=== PATIENT | female | born 1970 | race Caucasian/White ===

== ENCOUNTER 2016-03-19 09:46 | Emergency (ER) | payer MEDICAID ==
[~2016-03-19] VITALS: Ht 177.8 cm; Wt 63.5 kg
[~2016-03-19 09:46] MED LIST: AZIT250T6 PO
[2016-03-19 09:55] VITALS: BP 135/59; PULSE 90; RESP 20; TEMP 98.4; O2SAT 100
--- NOTE | 2016-03-19 10:03 | NUR ---
Pt placed to ER bed 03. Pt report given to KEEGAN Atkins.
--- NOTE | 2016-03-19 10:15 | NUR ---
PATIENT AWAKE IN BED, STABLE CONDITION, ALERT AND ORIENTED X4. HAS HAD LOWER ABDOMINAL PAIN, LOWER BACK PAIN, URINARY FREQUENCY, PAIN WITH URINATION AND HEMATURIA SINCE LAST NIGHT. WAS TREATED FOR UTI ON THE Feb AND FEEL LIKE IT HAS COME BACK. NO OTHER COMPLAINTS/INJURIES PER PATIENT OR NOTED.
--- NOTE | 2016-03-19 10:18 | NUR ---
DR ANN AT BEDSIDE.
[2016-03-19] MEDS ORDERED: MORPHINE 4 MG/ML INJ. SYRINGE IVP ONE (10:30)
[2016-03-19] MEDS ORDERED: DIPHENHYDRAMINE INJ 50 MG/ML VIAL IVP ONE (10:30)
[2016-03-19] MEDS ORDERED: NACL 0.9% 1,000 ML IV ONE (10:30)
[2016-03-19 10:31] LABS: BILIRUBIN,URINE NEGATIVE (NEGATIVE); BLOOD, URINE 3+ (NEGATIVE); CLARITY/URINE HAZY (CLEAR); COLOR,URINE YELLOW (YELLOW); GLUCOSE,URINE NEGATIVE (NEGATIVE); KETONES,URINE NEGATIVE (NEGATIVE); LEUKOCYTE ESTERASE ,URINE 2+ (NEGATIVE); NITRITE, URINE POSITIVE (NEGATIVE); PH,URINE 6.5 (5.0-8.0); PROTEIN URINE 2+ (NEGATIVE); UROBILINOGEN,URINE 0.2 (0.2-1.0)
[2016-03-19 10:38] LABS: BACTERIA,URINE FEW /HPF (None Seen); MUCUS,URINE None Seen /LPF (None Seen); WBC,URINE 20-50 /HPF (0-3)
[2016-03-19 10:42] LABS: BASOPHILS % (AUTO) 0.5 % (0.0-2.0); EOSINOPHILS # (AUTO) 0.2 K/uL (0.0-0.4); EOSINOPHILS % (AUTO) 2.1 % (0.0-4.0); HEMOGLOBIN 11.2 g/dL (12.0-16.0); LYMPHOCYTES # (AUTO) 1.7 K/uL (1.0-5.5); LYMPHOCYTES % (AUTO) 19.7 % (20.5-51.5); MEAN CORPUSCULAR HEMOGLOBIN 26 pg (27-31); MEAN CORPUSCULAR HGB CONC 32 % (32-36); MEAN CORPUSCULAR VOLUME 80 fL (79.0-98.0); MONOCYTES # (AUTO) 0.7 K/uL (0.0-1.0); NEUTROPHILS # (AUTO) 5.9 K/uL (1.8-7.7); NEUTROPHILS % (AUTO) 69.7 % (40.0-70.0); PLATELET COUNT (AUTO) 246 K/uL (130-430); RED BLOOD CELL COUNT(AUTO) 4.35 MIL/uL (4.2-6.2); RED CELL DISTRIBUTION WIDTH 16.4 % (9.0-15.0); WHITE BLOOD COUNT (AUTO) 8.5 K/uL (4.8-10.8)
--- NOTE | 2016-03-19 10:45 | NUR ---
# 20 gauge angiocath placed to L AC. Use of asceptic technique. Opsite placed over site. Blood return noted. Flushed with 10 cc of normal saline. No evidence of infiltration noted. Patient tolerated well.
--- NOTE | 2016-03-19 10:56 | NUR ---
medicated pt per MD order, allergies acknowledged
[2016-03-19 10:57] LABS: CALCIUM 8.9 mg/dL (8.4-11.0); CREATININE 0.84 mg/dL (0.55-1.30); POTASSIUM 4.1 mmol/L (3.5-5.1)
[2016-03-19 11:02] LABS: ALBUMIN 3.4 g/dL (3.4-4.8); TOTAL BILIRUBIN 0.2 mg/dL (0.0-1.0); TOTAL PROTEIN, SERUM 7.5 g/dL (6.4-8.3)
[2016-03-19] MEDS ORDERED: MAGNESIUM CITRATE 300 ML ORAL SOLUTION PO ONE (12:00)
--- NOTE | 2016-03-19 12:00 | NUR ---
Patient given written and verbal discharge instructions and verbalizes understanding. ER MD discussed with patient the results and treatment provided. Patient in stable condition. ID arm band removed. IV catheter removed intact and dressing applied, no active bleeding. Rx of pyridium and Bactrum given. Patient educated on pain management and to follow up with PMD. Pain Scale 0/10. Opportunity for questions provided and answered.
[2016-03-19 12:29] VITALS: BP 141/85; PULSE 73; RESP 20; TEMP 98.2; O2SAT 100
== END 2016-03-19 12:29 | disposition home or self-care (01) ==
LOC: SED 09:46
DX: N39.0 Urinary tract infection, site not specified (principal); K59.00 Constipation, unspecified; Z88.1 Allergy status to other antibiotic agents
CPT/HCPCS: 36415; 74176; 80053; 81000; 81025; 83605; 83690; 85025; 85610; 87040; 87086; 93005; 96361; 96374; 96375; 99285; J1200; J2270; J7030; 87186-TC

== ENCOUNTER 2016-04-10 03:52 | Emergency (ER) | payer MEDICAID ==
[~2016-04-10] VITALS: Ht 177.8 cm; Wt 65.8 kg
[2016-04-10 04:00] VITALS: BP 138/89; PULSE 71; RESP 18; TEMP 97.6; O2SAT 100
--- NOTE | 2016-04-10 04:00 | NUR ---
PT IS AOX4, C/O CONSTIPATION X 5 DAYS. PAIN SCALE 8/10.
--- NOTE | 2016-04-10 04:00 | NUR ---
Placed in room 08 . Placed on superintendent stevedoring, blood pressure machine and pulse oximeter. To gown for exam. Side rails up. Report given to KEEGAN Salomon.
--- NOTE | 2016-04-10 04:15 | NUR ---
ER Dr.DE REHMAN at bedside examining patient.
--- NOTE | 2016-04-10 04:35 | NUR ---
MD Dr. Bolivar at bedside performing rectal exam, female nurse present , no acute distress noted, patient tolerated exam well. Will continue to monitor.
[2016-04-10] MEDS ORDERED: NA PHOS,M-B/NA PHOS,DI-BA 118 ML (FLEET ENEMA) RC ONE (05:00)
[2016-04-10] MEDS ORDERED: MILK OF MAGNESIA 30 ML UDC PO ONE (05:00)
[2016-04-10] MEDS ORDERED: KETOROLAC TROMETHAMINE 60 MG/2 ML VIAL IM ONE (05:30)
[2016-04-10 05:35] VITALS: BP 138/89; PULSE 71; RESP 18; TEMP 97.6; O2SAT 100
--- NOTE | 2016-04-10 05:35 | NUR ---
Patient given written and verbal discharge instructions and verbalizes understanding. ER MD discussed with patient the results and treatment provided. Patient in stable condition. ID arm band removed. Rx of FLEET DISPOSABLE RECTAL ENEMA, COLACE 100 MG , MILK OF MAGNEASIA SUSPENSION AND GO LYTELY BOTTLE given. Patient educated on pain management and to follow up with PMD. Pain Scale 0/10. Opportunity for questions provided and answered.
== END 2016-04-10 05:35 | disposition home or self-care (01) ==
LOC: SED 03:52
DX: K59.00 Constipation, unspecified (principal); F17.210 Nicotine dependence, cigarettes, uncomplicated; Z88.1 Allergy status to other antibiotic agents
CPT/HCPCS: 81025; 96372; 99284; J1885

== ENCOUNTER 2016-05-12 00:43 | Emergency (ER) | payer MEDICAID ==
[~2016-05-12] VITALS: Ht 177.8 cm; Wt 63.5 kg
[2016-05-12 01:06] VITALS: BP 139/89; PULSE 74; RESP 17; TEMP 97.8; O2SAT 100
--- NOTE | 2016-05-12 01:06 | NUR ---
Patient to ER bed 6 to gown for evaluation. Side rails up. Report given to Lenny ALLISON.
--- NOTE | 2016-05-12 01:10 | NUR ---
Pt presents to ED with c/o blood in stool x2 days. Skin intact, no complain of dizziness, gait stable. A&Ox4, denies SOB or chestpain, denies N/V/D. Will continue to monitor
--- NOTE | 2016-05-12 01:23 | NUR ---
ER MD Pierceaw at bedside for evaluation
[2016-05-12 01:30] VITALS: BP 132/87; PULSE 72; RESP 18; TEMP 97.8; O2SAT 99
--- NOTE | 2016-05-12 01:30 | NUR ---
Patient given written and verbal discharge instructions and verbalizes understanding. ER MD discussed with patient the results and treatment provided. Patient in stable condition. ID arm band removed. Rx of colace given. Patient educated on pain management and to follow up with PMD. Pain Scale 0/10 Opportunity for questions provided and answered.
== END 2016-05-12 01:30 | disposition home or self-care (01) ==
LOC: SED 00:43
DX: K60.2 Anal fissure, unspecified (principal); Z88.1 Allergy status to other antibiotic agents
CPT/HCPCS: 99282

== ENCOUNTER 2018-05-30 21:18 | Emergency (ER) | payer MEDICAID ==
[~2018-05-30] VITALS: Ht 177.8 cm; Wt 65.8 kg
[2018-05-30 21:22] VITALS: BP_SYST 115
--- NOTE | 2018-05-30 21:33 | NUR ---
Patient to ER bed 08 for evaluation. Side rails up. Report given to Anna ALLISON.
--- NOTE | 2018-05-30 21:36 | NUR ---
Pt complains of bug bites to left hip that happened last night. Pt states she has been feeling very itchy. Pt was at the store today and stated " I felt a wave of chills and sick to my stomach so I had to leave." Pt denies any pain and states "it's more itchy than pain." No other injuries/complaints per patient or noted.
--- NOTE | 2018-05-30 21:43 | NUR ---
ER Dr. Rojas at bedside examining patient.
[2018-05-30] MEDS ORDERED: SULFAMETHOXAZOLE/TRIMETHOPR DS 1 TABLET PO ONE (22:00)
[2018-05-30] MEDS ORDERED: DIPHENHYDRAMINE INJ 50 MG/ML VIAL IM ONE (22:30)
--- NOTE | 2018-05-30 23:00 | NUR ---
Pt left room and told admitting that she will be going to the car to get her purse since her son is coming to pick her up. SPoke with patient and was told the same thing. Pt states "I'll come back I just want to get my stuff ready before he comes."
--- NOTE | 2018-05-30 23:01 | NUR ---
Pt was advised to stay in room to wait for son to pick her up, for safety reasons. Pt refused and left ER.
--- NOTE | 2018-05-30 23:27 | NUR ---
Pt did not come back for discharge paperwork. Checked restrooms, checked room, checked parking lot, no sign of patient. Notified Dr. Rojas that patient eloped.
== END 2018-05-30 23:27 | disposition home or self-care (01) ==
LOC: SED 21:18
DX: S70.262A Insect bite (nonvenomous), left hip, initial encounter (principal); L03.114 Cellulitis of left upper limb; Z88.1 Allergy status to other antibiotic agents; W57.XXXA Bitten or stung by nonvenomous insect and other nonvenomous arthropods, initial encounter; Y93.89 Activity, other specified; Y92.89 Other specified places as the place of occurrence of the external cause; Y99.8 Other external cause status
CPT/HCPCS: 96372; 99283; J1200

== ENCOUNTER 2018-08-23 01:53 | Emergency (ER) | payer MEDICAID ==
[~2018-08-23] VITALS: Ht 177.8 cm; Wt 65.8 kg
[2018-08-23 02:00] VITALS: BP_SYST 130
--- NOTE | 2018-08-23 02:06 | NUR ---
Patient to ER bed 4 to gown for evaluation. Side rails up.
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
--- NOTE | 2018-08-23 02:37 | NUR ---
Dr. Saleh bedside for Pt eval
[2018-08-23] MEDS ORDERED: SILVER SULFADIAZINE 1%, 25 GM TOPICAL CREAM (SSD) TP ONE (02:45)
[2018-08-23] MEDS ORDERED: MORPHINE 2 MG/ML INJ. SYRINGE IM ONE (02:45)
[2018-08-23] MEDS ORDERED: methylPREDNISolone SOD SUCC/PF 62.5 MG/ML VIAL IM ONE (02:45)
[2018-08-23] MEDS ORDERED: BACITRACIN ZINC 15 GM TOPICAL OINTMENT TP ONE (03:00)
[2018-08-23] MEDS ORDERED: ACETAMINOPHEN 500 MG TABLET PO ONE (04:15)
[2018-08-23 04:45] VITALS: BP_SYST 132
--- NOTE | 2018-08-23 04:45 | NUR ---
Patient given written and verbal discharge instructions and verbalizes understanding. ER MD discussed with patient the results and treatment provided. Patient in stable condition. ID arm band removed. Rx of Prednisone, norco, silvdene 1%, Bactroban 2% given. Patient educated on pain management and to follow up with PMD. Pain Scale 0/10. Opportunity for questions provided and answered. Medication side effect fact sheet provided.
== END 2018-08-23 04:45 | disposition home or self-care (01) ==
LOC: SED 01:53
DX: T21.11XA Burn of first degree of chest wall, initial encounter (principal); Z88.1 Allergy status to other antibiotic agents; X12.XXXA Contact with other hot fluids, initial encounter; Y93.89 Activity, other specified; Y92.89 Other specified places as the place of occurrence of the external cause; Y99.8 Other external cause status
CPT/HCPCS: 16000; 96372; 99284; J2270; J2930

== ENCOUNTER 2018-10-17 21:12 | Emergency (ER) | payer MEDICAID ==
[~2018-10-17] VITALS: Ht 167.6 cm; Wt 64.9 kg
[2018-10-17 21:17] VITALS: BP_SYST 139
== END 2018-10-17 21:46 | disposition left against medical advice (07) ==
LOC: SED 21:12
DX: M79.604 Pain in right leg (principal); M79.605 Pain in left leg; M25.551 Pain in right hip; R50.9 Fever, unspecified; Z53.21 Procedure and treatment not carried out due to patient leaving prior to being seen by health care provider

== ENCOUNTER 2020-07-29 00:02 | Emergency (ER) | payer MEDICAID ==
[~2020-07-29] VITALS: Ht 177.8 cm; Wt 68.0 kg
[~2020-07-29 00:02] MED LIST changes: +ACET325T PO; -AZIT250T6 PO; +IBUP-1968 PO
[2020-07-29 00:18] VITALS: BP_SYST 129
--- NOTE | 2020-07-29 00:24 | NUR ---
Patient triaged and placed in waiting room. VSS and patient appears in no acute distress at this time. Accompanied by family, awaiting available bed, and MD notified of need for MSE.
--- NOTE | 2020-07-29 01:00 | NUR ---
Per revival clerk, pt LWBS.
== END 2020-07-29 01:00 | disposition left against medical advice (07) ==
LOC: SED 00:02
DX: M79.89 Other specified soft tissue disorders (principal); Z53.21 Procedure and treatment not carried out due to patient leaving prior to being seen by health care provider

== ENCOUNTER 2021-02-14 23:03 | Emergency (ER) | payer MEDICAID, SELFPAY ==
[~2021-02-14] VITALS: Ht 177.8 cm; Wt 65.8 kg
[2021-02-14 23:50] VITALS: BP_SYST 123
--- NOTE | 2021-02-15 02:13 | NUR ---
Called pattient, no answer. Patient left without being seen. ER MD aware
--- NOTE | 2021-02-15 02:13 | NUR ---
Per incoming freight clerk, pt LWBS.
== END 2021-02-15 02:13 | disposition left against medical advice (07) ==
LOC: SED 23:03
DX: R07.89 Other chest pain (principal); Z53.21 Procedure and treatment not carried out due to patient leaving prior to being seen by health care provider

== ENCOUNTER 2021-05-19 23:35 | Emergency (ER) | payer MEDICAID ==
[~2021-05-19] VITALS: Ht 177.8 cm; Wt 56.7 kg
[2021-05-19 23:40] VITALS: BP_SYST 123
--- NOTE | 2021-05-19 23:42 | NUR ---
Patient to ER bed 4 to gown for evaluation. Side rails up. Report given to MCKAY ALLISON(MAGY).
--- NOTE | 2021-05-19 23:47 | NUR ---
PT COMES TO ER WITH C/O DYSURIA X 3 DAYS, DENIES ANY N/V/D, NO FEVERS OR ABDOMINAL PAIN. STATES SHE IS PRONE TO FREQUENTS KIDNEY STONES AND PREVIOUS UTI,LAST 9 MONTHS AGO. URINE COLLECTED AND PROCESSED.
--- NOTE | 2021-05-19 23:54 | NUR ---
DR RUCKER IN ROOM FOR EXAM
[2021-05-20] MEDS ORDERED: NITROFURANTOIN MONOHYD/M-CRYST 100 MG CAPSULE (MacroBID) PO ONE
[2021-05-20] MEDS ORDERED: PHEN-726 PO (00:04)
[2021-05-20] MEDS ORDERED: NITR-85 PO (00:04)
[2021-05-20 00:06] LABS: BILIRUBIN,URINE NEGATIVE (NEGATIVE); CLARITY/URINE SL CLOUDY (CLEAR); COLOR,URINE YELLOW (YELLOW); GLUCOSE,URINE NEGATIVE (NEGATIVE); KETONES,URINE NEGATIVE (NEGATIVE); LEUKOCYTE ESTERASE ,URINE 1+ (NEGATIVE); NITRITE, URINE NEGATIVE (NEGATIVE); PROTEIN URINE NEGATIVE (NEGATIVE); UROBILINOGEN,URINE 0.2 (0.2-1.0)
[2021-05-20 00:08] LABS: BLOOD, URINE TRACE (NEGATIVE)
--- NOTE | 2021-05-20 00:09 | NUR ---
MEDICATED ORDERED, WILL MONIOT FOR ANY ADVERSE SIDE EEFECTS.
[2021-05-20 00:14] LABS: BACTERIA,URINE MODERATE /HPF (None Seen); WBC,URINE 50-80 /HPF (0-3)
[2021-05-20 00:15] LABS: MUCUS,URINE 2+ /LPF (None Seen)
[2021-05-20 00:26] VITALS: BP_SYST 123
== END 2021-05-20 00:26 | disposition home or self-care (01) ==
LOC: SED 23:35
DX: N39.0 Urinary tract infection, site not specified (principal); Z88.0 Allergy status to penicillin
CPT/HCPCS: 81000; 87086; 99283

== ENCOUNTER 2021-07-02 12:36 | Emergency (ER) | payer MEDICAID ==
[~2021-07-02] VITALS: Ht 177.8 cm; Wt 56.7 kg
[~2021-07-02 12:36] MED LIST changes: +NITR-85 PO; +PHEN-726 PO
--- NOTE | 2021-07-02 13:32 | NUR ---
Patient arrived to ED 4 from waiting room. Patient c/o lower back pain radiating to front since "last night." Patient denies taking any medication. Patient was previously at [facility] [place] for UTI and finished ATB regimen but patient thinks it "came back." Patient denies any other past medical issues. Will continue to monitor. Call light within reach.
[2021-07-02 13:36] VITALS: BP_SYST 115
--- NOTE | 2021-07-02 13:55 | NUR ---
Dr. Serrano MSE patient.
--- NOTE | 2021-07-02 14:10 | NUR ---
Urine specimen cup given for patient.
[2021-07-02 14:21] LABS: BASOPHILS % (AUTO) 0.5 % (0.0-2.0); EOSINOPHILS # (AUTO) 0.1 K/uL (0.0-0.4); EOSINOPHILS % (AUTO) 1.9 % (0.0-4.0); HEMATOCRIT 40.8 % (36-48); LYMPHOCYTES # (AUTO) 1.3 K/uL (1.0-5.5); LYMPHOCYTES % (AUTO) 24.6 % (20.5-51.5); MEAN CORPUSCULAR HEMOGLOBIN 31 pg (27-31); MEAN CORPUSCULAR HGB CONC 34 % (32-36); MEAN CORPUSCULAR VOLUME 90 fL (79.0-98.0); MONOCYTES # (AUTO) 0.4 K/uL (0.0-1.0); MONOCYTES % (AUTO) 7.4 % (1.7-9.3); NEUTROPHILS # (AUTO) 3.5 K/uL (1.8-7.7); NEUTROPHILS % (AUTO) 65.6 % (40.0-70.0); PLATELET COUNT (AUTO) 173 K/uL (130-430); RED BLOOD CELL COUNT(AUTO) 4.55 MIL/uL (4.2-6.2); RED CELL DISTRIBUTION WIDTH 13.3 % (9.0-15.0); WHITE BLOOD COUNT (AUTO) 5.3 K/uL (4.8-10.8)
--- NOTE | 2021-07-02 14:37 | NUR ---
Urine sent to lab.
[2021-07-02 14:40] LABS: ANION GAP 5 (5-15); CALCIUM 8.4 mg/dL (8.4-11.0); CHLORIDE 103 mmol/L (98-107); CREATININE 0.96 mg/dL (0.55-1.30); GLUCOSE 90 mg/dL (70-99); POTASSIUM 3.8 mmol/L (3.5-5.1); SODIUM SERUM 138 mmol/L (136-145); UREA NITROGEN, BLOOD 19 mg/dL (8-21)
[2021-07-02 14:42] LABS: GFR AFRICAN AMERICAN 79 mL/min (>90)
[2021-07-02 14:46] LABS: ALANINE AMINOTRANSFERASE 24 U/L (12-78); ALBUMIN 3.3 g/dL (3.4-4.8); AMYLASE 52 U/L (0-100); ASPARTATE AMINOTRANSFERASE 19 U/L (10-37); LIPASE 106 U/L (73-393); TOTAL BILIRUBIN 0.3 mg/dL (0.0-1.0)
[2021-07-02 14:47] LABS: C-REACTIVE PROTEIN QUANT < 0.2 mg/dL (0-0.5)
[2021-07-02 14:53] LABS: BILIRUBIN,URINE NEGATIVE (NEGATIVE); CLARITY/URINE CLEAR (CLEAR); COLOR,URINE YELLOW (YELLOW); GLUCOSE,URINE NEGATIVE (NEGATIVE); KETONES,URINE NEGATIVE (NEGATIVE); LEUKOCYTE ESTERASE ,URINE NEGATIVE (NEGATIVE); NITRITE, URINE NEGATIVE (NEGATIVE); PROTEIN URINE NEGATIVE (NEGATIVE); UROBILINOGEN,URINE 0.2 (0.2-1.0)
[2021-07-02 15:03] LABS: BLOOD, URINE TRACE (NEGATIVE)
[2021-07-02] MEDS: KETOROLAC TROMETHAMINE 60 MG/2 ML VIAL IM ONE (15:04)
[2021-07-02 15:06] LABS: BACTERIA,URINE FEW /HPF (None Seen); MUCUS,URINE 3+ /LPF (None Seen); WBC,URINE 0-3 /HPF (0-3)
[2021-07-02] MEDS ORDERED: HYDR-3917 PO (15:23)
[2021-07-02] MEDS ORDERED: IBUP-1969 PO (15:23)
[2021-07-02 15:30] VITALS: BP_SYST 116
--- NOTE | 2021-07-02 15:30 | NUR ---
Patient given written and verbal discharge instructions and verbalizes understanding. ER MD discussed with patient the results and treatment provided. Patient in stable condition. ID arm band removed. Rx of motrin,norco given. Patient educated on pain management and to follow up with PMD. Pain Scale 2. Opportunity for questions provided and answered. Medication side effect fact sheet provided.
== END 2021-07-02 15:30 | disposition home or self-care (01) ==
LOC: SED 12:36
DX: N23 Unspecified renal colic (principal); Z79.899 Other long term (current) drug therapy; Z88.1 Allergy status to other antibiotic agents
CPT/HCPCS: 36415; 74176; 76376; 80053; 81000; 81025; 82150; 83690; 84703; 85025; 86140; 96372; 99284; J1885